=== PATIENT | female | born 1995 | race Caucasian/White ===

== ENCOUNTER 2021-03-04 16:55 | Emergency (ER) | payer OTHER, MEDICAID ==
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
[2021-03-04] MEDS ORDERED: Ibuprofen 200 MG Tab PO ONE (18:01)
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
--- NOTE | 2021-03-04 18:15 | CR ---
[id number] RAD/RAD Knee Left 3V EXAM: 4 VIEWS LEFT KNEE. INDICATION: KNEE PAIN COMPARISON: None. DISCUSSION: No fracture, dislocation or other acute osseous abnormality. IMPRESSION: 1. No acute osseous abnormalities. Jimmie Esquivel DO 03/04/21 1813 Thank you for allowing us to participate in the care of your patient.
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
== END 2021-03-04 21:00 | disposition home or self-care (01) ==
LOC: VM.ED 16:55
DX: S01.112A Laceration without foreign body of left eyelid and periocular area, initial encounter (principal); S80.212A Abrasion, left knee, initial encounter; V19.9XXA Pedal cyclist (driver) (passenger) injured in unspecified traffic accident, initial encounter
CPT/HCPCS: 12011; 70450; 72125; 73562-LT; 99284; 99284-25